=== PATIENT | male | born 1975 | race Caucasian/White ===

== ENCOUNTER → 2020-07-12 | Outpatient (CLI) | payer SELFPAY ==
[~2020-07-12] MED LIST: ALDACTONE 100M100 MG PO; FOLIC ACID 11 MG/TA1 PO; K-DUR20 MEQ PO; LASIX 40MG TABL40 MG PO; PROTONIX 40MG T40 MG PO; THIAMINE 1100 MG/TAB PO
[2020-07-12 17:14] LABS: INR 1.5 (0.8-3.0); PROTHROMBIN TIME 16.8 SECONDS (9.7-12.8)
[2020-07-12 17:15] LABS: BASO # 0.1 (0.0-0.2); EOS # 0.1 (0.0-0.7); EOS % 2.2 % (0-4.0); GRAN # 2.8 (1.4-6.5); GRAN % 47.7 % (42.2-75.2); HEMOGLOBIN 12.7 g/dl (13.5-18.0); LYMPH # 2.1 (1.2-3.4); LYMPH % 36.3 % (20.0-51.0); MEAN CELL VOLUME 98 fl (80.0-100.0); MEAN CORPUSCULAR HEMOGLOBIN 34 pg (27.0-31.0); MEAN CORPUSCULAR HGB CONC 35 g/dl (33.0-37.0); MEAN PLATELET VOLUME 10.4 fl (7.4-10.4); MONO # 0.7 (0.1-0.6); MONO % 12.5 % (1.7-9.3); PLATELET COUNT 97 K/mm3 (130-400); RED BLOOD COUNT 3.71 M/mm3 (4.20-5.60); REDCELL DISTRIBUTION WIDTH-CV 13.1 % (11.5-14.5)
[2020-07-12 17:16] LABS: ALBUMIN 3.1 gm/dL (3.5-5.0); BILIRUBIN,TOTAL 1.5 mg/dL (0.0-1.0); CALCIUM 8.9 mg/dL (8.4-10.2); CREATININE, serum 0.92 (0.66-1.25); POTASSIUM 3.3 mmol/L (3.4-5.0)
[2020-07-12 17:17] LABS: HEMATOCRIT 36.4 % (42.0-52.0)
== END ==
LOC: COL.LAB 15:42
PROVIDERS: Internal Medicine Gastroenterology
DX: K70.31 Alcoholic cirrhosis of liver with ascites (principal); E83.00 Disorder of copper metabolism, unspecified

== ENCOUNTER 2020-10-01 13:38 | Outpatient (CLI) | payer SELFPAY ==
[~2020-10-01] VITALS: Ht 180.3 cm; Wt 96.9 kg
[2020-10-01 14:11] VITALS: BP 113/79; PULSE 76
[2020-10-01 16:52] VITALS: BP 104/66; PULSE 62
[2020-10-01 17:17] LABS: PERITONEAL -POLYMORPHONUCLEAR 6.3 % (0-25); PERITONEAL FLUID RBC 0 /mm3 (0-0)
[2020-10-01 18:28] VITALS: BP 113/61; PULSE 67; TEMP 98.2
[2020-12-29] MEDS ORDERED: DULCOLAX TAB5 MG PO (12:42)
== END 2020-10-01 19:44 | disposition home or self-care (01) ==
LOC: COL.RAD 13:38 → EUO 13:38 → COL.RAD 14:15
PROVIDERS: Internal Medicine Gastroenterology
DX: K70.31 Alcoholic cirrhosis of liver with ascites (principal)
CPT/HCPCS: P9047

== ENCOUNTER 2020-12-04 11:59 | Outpatient (CLI) | payer MEDICAID ==
[~2020-12-04] VITALS: Ht 180.3 cm; Wt 93.2 kg
[2020-12-04] MEDS ORDERED: LASIX 40MG TABL40 MG PO (12:14)
[2020-12-04] MEDS ORDERED: B COMPLEX #11 TA1 PO (12:15)
[2020-12-04] MEDS ORDERED: ALDACTONE 100M100 MG PO (12:15)
[2020-12-04 12:17] VITALS: BP 117/85; PULSE 72
[2020-12-04 15:00] VITALS: BP 110/78; PULSE 58; TEMP 98
[2020-12-04 15:06] LABS: PERITONEAL -POLYMORPHONUCLEAR 8.5 % (0-25); PERITONEAL FLUID RBC 0 /mm3 (0-0)
[2020-12-29] MEDS ORDERED: DULCOLAX TAB5 MG PO (12:42)
== END 2020-12-04 17:35 | disposition home or self-care (01) ==
LOC: COL.RAD 11:59
PROVIDERS: Internal Medicine Gastroenterology
DX: K70.31 Alcoholic cirrhosis of liver with ascites (principal)
CPT/HCPCS: P9047

== ENCOUNTER 2020-12-08 10:30 | Emergency (ER) | payer MEDICAID ==
[~2020-12-08] VITALS: Ht 180.3 cm; Wt 84.1 kg
[~2020-12-08 10:30] MED LIST changes: +B COMPLEX #11 TA1 PO
[2020-12-08 10:32] VITALS: TEMP 97.8
[2020-12-08 10:51] LABS: BASO # 0.1 (0.0-0.2); BASO % 0.5 % (0.0-2.0); EOS # 0.2 (0.0-0.7); EOS % 1.3 % (0-4.0); GRAN # 8.4 (1.4-6.5); GRAN % 72.7 % (42.2-75.2); HEMATOCRIT 30.9 % (42.0-52.0); HEMOGLOBIN 10.8 g/dl (13.5-18.0); LYMPH # 1.8 (1.2-3.4); LYMPH % 15.5 % (20.0-51.0); MEAN CELL VOLUME 94 fl (80.0-100.0); MEAN CORPUSCULAR HEMOGLOBIN 33 pg (27.0-31.0); MEAN CORPUSCULAR HGB CONC 35 g/dl (33.0-37.0); MEAN PLATELET VOLUME 9.1 fl (7.4-10.4); MONO # 1.1 (0.1-0.6); MONO % 9.6 % (1.7-9.3); PLATELET COUNT 183 K/mm3 (130-400); RED BLOOD COUNT 3.28 M/mm3 (4.20-5.60); REDCELL DISTRIBUTION WIDTH-CV 16.1 % (11.5-14.5)
[2020-12-08 11:04] LABS: ALBUMIN 3.1 gm/dL (3.5-5.0); BILIRUBIN,TOTAL 1.2 mg/dL (0.0-1.0); CALCIUM 8.5 mg/dL (8.4-10.2); CREATININE, serum 1.62 (0.66-1.25); TOTAL PROTEIN 7.4 gm/dL (6.4-8.2)
[2020-12-08 11:08] LABS: POTASSIUM 2.9 mmol/L (3.4-5.0)
[2020-12-08 11:19] LABS: INR 1.3 (0.8-3.0)
[2020-12-08 12:13] LABS: COLLECTION METHOD CLEAN CATCH
[2020-12-08 12:36] LABS: PH 6 (5-8); SQUAMOUS EPITHELIAL None Seen /hpf; URINE APPEARANCE Hazy; URINE BACTERIA None Seen /hpf; URINE BILIRUBIN Negative (NEGATIVE); URINE BLOOD 3+ (NEGATIVE); URINE COLOR Yellow; URINE GLUCOSE Negative (NEGATIVE); URINE KETONE Negative (NEGATIVE); URINE LEUKOCYTE ESTERASE Negative (NEGATIVE); URINE NITRATE Negative (NEGATIVE); URINE PROTEIN(semi-quant) 1+ (NEGATIVE); URINE RBC >50 /hpf
[2020-12-08 13:56] VITALS: BP 101/63; PULSE 73
[2020-12-29] MEDS ORDERED: DULCOLAX TAB5 MG PO (12:42)
== END 2020-12-08 13:26 | disposition short-term general hospital (02) ==
LOC: COL.ER 10:30
PROVIDERS: Emergency Medicine
DX: R18.8 Other ascites (principal); E87.8 Other disorders of electrolyte and fluid balance, not elsewhere classified; S31.109A Unspecified open wound of abdominal wall, unspecified quadrant without penetration into peritoneal cavity, initial encounter; F17.210 Nicotine dependence, cigarettes, uncomplicated; K72.90 Hepatic failure, unspecified without coma; X58.XXXA Exposure to other specified factors, initial encounter
CPT/HCPCS: J0692; J3010

== ENCOUNTER 2020-12-30 09:28 | Outpatient (CLI) | payer SELFPAY ==
[~2020-12-30] VITALS: Ht 180.3 cm; Wt 86.5 kg
[~2020-12-30 09:28] MED LIST changes: +DULCOLAX TAB5 MG PO
[2020-12-30 09:45] VITALS: BP 108/76; PULSE 66
[2020-12-30 11:02] LABS: PERITONEAL FLUID RBC 0 /mm3 (0-0)
[2020-12-30 12:06] VITALS: BP 95/61; PULSE 63
--- NOTE | 2020-12-30 15:54 | NUR ---
INT DC'd with catheter intact. Pt assisted out to 's car by wheelchair.
== END 2020-12-30 18:13 | disposition home or self-care (01) ==
LOC: COL.RAD 09:28
PROVIDERS: Internal Medicine Gastroenterology
DX: K70.31 Alcoholic cirrhosis of liver with ascites (principal)
CPT/HCPCS: P9047

== ENCOUNTER 2021-02-22 11:21 | Outpatient (CLI) | payer MEDICAID ==
[~2021-02-22] VITALS: Ht 180.3 cm; Wt 83.5 kg
[2021-02-22] MEDS ORDERED: POTASSIUM (11:45)
[2021-02-22 11:48] VITALS: BP 108/75; PULSE 77; TEMP 98.7
[2021-02-22 14:11] LABS: PERITONEAL -POLYMORPHONUCLEAR 9.4 % (0-25); PERITONEAL FLUID RBC 1000 /mm3 (0-0)
[2021-02-22 15:46] VITALS: BP 101/65; PULSE 59
--- NOTE | 2021-02-22 17:45 | NUR ---
Pt tolerated his albumin infusion with no problem, feeling better at time of departure. pt has been ambulatory to several times, and is amb to exit with a nurse at time of his departure. IV was dc;d with cath intact, dressing was applied. bandaid present to puncture site left abd, no redness or drainage noted. mild nontender swelling to abd in this area, pt encouraged to call Dr. Naqvi for any concerns, especially signs of infection or pain.
== END 2021-02-22 20:11 | disposition home or self-care (01) ==
LOC: COL.RAD 11:21
PROVIDERS: Internal Medicine Gastroenterology
DX: K70.31 Alcoholic cirrhosis of liver with ascites (principal)
CPT/HCPCS: P9047

== ENCOUNTER 2021-03-26 11:59 | Outpatient (CLI) | payer MEDICAID ==
[~2021-03-26] VITALS: Ht 180.3 cm; Wt 86.6 kg
--- NOTE | 2021-03-26 08:55 | NUR ---
PT STATES HE ALWAYS HAS ALBUMIN AFTER THE PROCEDURE. CALLED TO ASK FOR ORDER FOR THE ALBUMIN. LEFT MSG ON HER MACHINE ASKING FOR CLARIFICATION AND ORDER TO BE FAXED TO [phone]
[~2021-03-26 11:59] MED LIST changes: +POTASSIUM
[2021-03-26] MEDS ORDERED: VITAMIN B12 781 TAB PO (12:08)
[2021-03-26] MEDS ORDERED: LASIX 40MG TABL40 MG PO (12:09)
[2021-03-26] MEDS ORDERED: ALDACTONE 100M100 MG PO (12:10)
[2021-03-26] MEDS ORDERED: NATURAL POTASS595 MG PO (12:10)
[2021-03-26 12:11] VITALS: BP 114/75; PULSE 86; TEMP 98.5
[2021-03-26 14:32] VITALS: BP 103/73; PULSE 59
[2021-03-26 14:52] LABS: PERITONEAL -POLYMORPHONUCLEAR 4.5 % (0-25); PERITONEAL FLUID RBC 1000 /mm3 (0-0)
--- NOTE | 2021-03-26 17:06 | NUR ---
INT DC'd with catheter intact. Pt assisted out to entrance by wheelchair.
== END 2021-03-26 17:07 | disposition home or self-care (01) ==
LOC: COL.RAD 11:59
PROVIDERS: Internal Medicine Gastroenterology
DX: K70.31 Alcoholic cirrhosis of liver with ascites (principal)
CPT/HCPCS: P9047

== ENCOUNTER 2021-03-30 11:36 | Day surgery (SDC) | payer MEDICAID ==
[~2021-03-30] VITALS: Ht 180.3 cm; Wt 77.3 kg
[~2021-03-30 11:36] MED LIST changes: +NATURAL POTASS595 MG PO; +VITAMIN B12 781 TAB PO
[2021-03-30 12:17] LABS: BASO # 0.1 (0.0-0.2); BASO % 0.7 % (0.0-2.0); EOS # 0.3 (0.0-0.7); EOS % 3.6 % (0-4.0); GRAN # 5.3 (1.4-6.5); GRAN % 64.3 % (42.2-75.2); HEMOGLOBIN 12.3 g/dl (13.5-18.0); LYMPH # 1.7 (1.2-3.4); LYMPH % 21.1 % (20.0-51.0); MEAN CELL VOLUME 95 fl (80.0-100.0); MEAN CORPUSCULAR HEMOGLOBIN 33 pg (27.0-31.0); MEAN CORPUSCULAR HGB CONC 35 g/dl (33.0-37.0); MEAN PLATELET VOLUME 8.9 fl (7.4-10.4); MONO # 0.8 (0.1-0.6); MONO % 10.1 % (1.7-9.3); PLATELET COUNT 173 K/mm3 (130-400); RED BLOOD COUNT 3.73 M/mm3 (4.20-5.60); REDCELL DISTRIBUTION WIDTH-CV 14.6 % (11.5-14.5)
[2021-03-30 12:28] LABS: INR 1.2 (0.8-3.0); PROTHROMBIN TIME 13.6 SECONDS (9.7-12.8)
[2021-03-30 12:32] LABS: ALBUMIN 3.8 gm/dL (3.5-5.0); BILIRUBIN,TOTAL 1.1 mg/dL (0.0-1.0); CREATININE, serum 1.55 (0.66-1.25); POTASSIUM 3.4 mmol/L (3.4-5.0); TOTAL PROTEIN 7.8 gm/dL (6.4-8.2)
[2021-03-30 12:33] LABS: HEMATOCRIT 35.5 % (42.0-52.0)
[2021-03-30 13:36] VITALS: BP 99/70; PULSE 68; TEMP 97.4
[2021-03-30 15:21] VITALS: BP 111/77; PULSE 75
[2021-03-30] MEDS ORDERED: ROXICODONE 55 MG/TAB PO (15:21)
--- NOTE | 2021-03-30 15:21 | NUR ---
Patient returns to room 7 per cart accompanied by Carolyn TANNER and Riley BENTON. Arouses to verbal stimuli and complains of being thirsty. Exofin skin glue on the left inguinal area dry and wound edges well approixmated. IV fluids infusing. Siderails up x2 and call light in reach. Tem 97.4 and room air sats 97%. Given ice chips of wet mouth. Call light in reach and siderails up x2.
[2021-03-30 15:36] VITALS: BP 92/67; PULSE 81
--- NOTE | 2021-03-30 15:36 | NUR ---
Resting and drinking water. Denies need for pain medications.
[2021-03-30 15:51] VITALS: BP 102/71; PULSE 61
--- NOTE | 2021-03-30 15:51 | NUR ---
Eating applesauce. Denies pain or nausea.
[2021-03-30 16:01] VITALS: BP 103/69; PULSE 62
--- NOTE | 2021-03-30 16:01 | NUR ---
IV discontinued and assisted to edge of the cart. Assisted with dressing and gait is steady and tolerates activity well. Ride notified of patient being ready for discharge at 1630.
--- NOTE | 2021-03-30 16:25 | NUR ---
Dismissal instructions given and patient voices understanding of these. 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
--- NOTE | 2021-03-30 16:27 | NUR ---
Patient dismissed to home driven by friend. Taken to the front door per wheelchair and assisted into vehicle with instructions in hand.
== END 2021-03-30 16:27 | disposition home or self-care (01) ==
LOC: SDCO 11:36
PROVIDERS: Surgery
DX: K40.90 Unilateral inguinal hernia, without obstruction or gangrene, not specified as recurrent (principal); K74.60 Unspecified cirrhosis of liver; R18.8 Other ascites; I10 Essential (primary) hypertension; E11.9 Type 2 diabetes mellitus without complications; F10.11 Alcohol abuse, in remission; F17.210 Nicotine dependence, cigarettes, uncomplicated; Z20.822 Contact with and (suspected) exposure to COVID-19; Z79.899 Other long term (current) drug therapy
CPT/HCPCS: C1781; J0690; J1885; J2250; J2704; J3010; J7030

== ENCOUNTER 2021-04-16 13:18 | Outpatient (CLI) | payer MEDICAID ==
[~2021-04-16] VITALS: Ht 180.3 cm; Wt 88.2 kg
[~2021-04-16 13:18] MED LIST changes: +ROXICODONE 55 MG/TAB PO
[2021-04-16 13:40] VITALS: BP 107/75; PULSE 69; TEMP 98.3
== END 2021-04-16 18:08 | disposition home or self-care (01) ==
LOC: COL.RAD 13:18
DX: K70.31 Alcoholic cirrhosis of liver with ascites (principal)
CPT/HCPCS: P9047

== ENCOUNTER 2021-05-25 12:12 | Outpatient (CLI) | payer MEDICAID ==
--- NOTE | 2021-05-20 09:46 | NUR ---
LMOM AT [phone] WITH DIRECTION TO CALL US BACK AT [phone].
[~2021-05-25] VITALS: Ht 180.3 cm; Wt 88.3 kg
[2021-05-25 12:31] VITALS: BP 124/87; PULSE 90; TEMP 98
[2021-05-25 15:03] LABS: PERITONEAL -POLYMORPHONUCLEAR 9.1 % (0-25)
[2021-05-25 15:52] VITALS: BP 86/59; PULSE 75
[2021-05-25 17:26] VITALS: BP 99/71
== END 2021-05-25 17:44 ==
LOC: COL.RAD 12:12
PROVIDERS: Internal Medicine Gastroenterology
DX: K70.31 Alcoholic cirrhosis of liver with ascites (principal); K72.90 Hepatic failure, unspecified without coma
CPT/HCPCS: P9047

== ENCOUNTER 2021-06-15 13:11 | Outpatient (CLI) | payer MEDICAID ==
[~2021-06-15] VITALS: Ht 180.3 cm; Wt 87.5 kg
[2021-06-15 14:19] VITALS: BP 115/76; PULSE 61; TEMP 97.9
[2021-06-15 15:16] LABS: PERITONEAL -POLYMORPHONUCLEAR 5.9 % (0-25)
[2021-06-15 16:08] VITALS: BP 103/69; PULSE 53
--- NOTE | 2021-06-15 17:25 | NUR ---
INT DC'd with catheter intact. Pt assisted out to hospital entrance by wheelchair.
== END 2021-06-15 17:28 | disposition home or self-care (01) ==
LOC: COL.RAD 13:11
PROVIDERS: Internal Medicine Gastroenterology
DX: K70.31 Alcoholic cirrhosis of liver with ascites (principal)
CPT/HCPCS: P9047

== ENCOUNTER 2021-07-06 12:13 | Outpatient (CLI) | payer MEDICAID ==
[~2021-07-06] VITALS: Ht 180.3 cm; Wt 83.8 kg
[2021-07-06] MEDS ORDERED: ERGOCALCIFER50000 IU PO (12:29)
[2021-07-06] MEDS ORDERED: VITAMIN A10k PO (12:29)
[2021-07-06 12:32] VITALS: BP 100/62; PULSE 71; TEMP 98.5
[2021-07-06 14:24] LABS: PERITONEAL -POLYMORPHONUCLEAR 5.6 % (0-25)
--- NOTE | 2021-07-06 14:43 | NUR ---
Per pharmacy,Melina pt does not need albumin post para this time.INT removed,catheter tip intact.
[2021-07-06 14:46] VITALS: BP 203/84; PULSE 74
--- NOTE | 2021-07-06 15:05 | NUR ---
Pt escorted out via wheelchair by this nurse.
== END 2021-07-06 15:17 ==
LOC: COL.RAD 12:13
PROVIDERS: Internal Medicine
DX: K70.31 Alcoholic cirrhosis of liver with ascites (principal); K76.0 Fatty (change of) liver, not elsewhere classified

== ENCOUNTER 2021-08-05 13:01 | Outpatient (CLI) | payer MEDICAID ==
[~2021-08-05] VITALS: Ht 180.3 cm; Wt 79.2 kg
[2021-08-05 15:00] LABS: PERITONEAL -POLYMORPHONUCLEAR 4.8 % (0-25)
[2021-08-05 15:11] VITALS: BP 168/78; PULSE 92; TEMP 98.2
== END 2021-08-05 16:30 | disposition home or self-care (01) ==
LOC: COL.RAD 13:01 → EUO 13:01 → COL.RAD 16:30
DX: K70.31 Alcoholic cirrhosis of liver with ascites (principal)
CPT/HCPCS: P9047

== ENCOUNTER → 2021-08-05 | Outpatient (CLI) | payer MEDICAID ==
[~2021-08-05] VITALS: Ht 180.3 cm; Wt 89.5 kg
[~2021-08-05] MED LIST changes: +ERGOCALCIFER50000 IU PO; +VITAMIN A10k PO
[2021-08-05 13:18] VITALS: BP 121/81; PULSE 67; TEMP 97.4
== END ==
LOC: COL.RAD 12:00
DX: K70.31 Alcoholic cirrhosis of liver with ascites (principal)
CPT/HCPCS: 19804

== ENCOUNTER 2021-09-29 08:38 | Outpatient (CLI) | payer MEDICAID ==
[~2021-09-29] VITALS: Ht 180.3 cm; Wt 89.6 kg
[2021-09-29 08:57] VITALS: BP 112/78; PULSE 72; TEMP 98.1
[2021-09-29 11:15] VITALS: BP 97/60; PULSE 51
[2021-09-29 11:27] LABS: PERITONEAL -POLYMORPHONUCLEAR 6.4 % (0-25)
[2021-09-29 13:45] VITALS: PULSE 60
== END 2021-09-29 17:50 ==
LOC: COL.RAD 08:38
PROVIDERS: Internal Medicine
DX: K70.31 Alcoholic cirrhosis of liver with ascites (principal)
CPT/HCPCS: P9047

== ENCOUNTER → 2021-10-13 | Outpatient (CLI) | payer MEDICAID | LOC: COL.VAS 14:30 | DX: K70.31 Alcoholic cirrhosis of liver with ascites (principal) ==

== ENCOUNTER 2021-11-01 12:59 | Outpatient (CLI) | payer MEDICAID ==
[~2021-11-01] VITALS: Ht 180.3 cm; Wt 88.3 kg
[2021-11-01 13:15] VITALS: BP 99/64; PULSE 65; TEMP 97.7
[2021-11-01 14:40] VITALS: BP 93/61; PULSE 58
--- NOTE | 2021-11-01 14:41 | NUR ---
PT FROM ULTRASOUND TO ROOM 14. VSS. IV ATTEMPTED X2. LILLIANA KATZ RN NOTIFIED AND WILL COME PLACE IV.
[2021-11-01 15:21] VITALS: BP 99/56; PULSE 55; TEMP 98
--- NOTE | 2021-11-01 17:22 | NUR ---
IV AND MONITOR DC'D. PT WHEELED OUT FOR DISCHARGE.
== END 2021-11-01 18:00 ==
LOC: COL.RAD 12:59
PROVIDERS: Internal Medicine
DX: K70.31 Alcoholic cirrhosis of liver with ascites (principal)
CPT/HCPCS: P9047

== ENCOUNTER 2021-11-23 15:40 | Emergency (ER) | payer MEDICAID ==
[~2021-11-23] VITALS: Ht 180.3 cm; Wt 90.9 kg
[2021-11-23 16:13] VITALS: BP 133/86; PULSE 61; TEMP 98.1
== END 2021-11-23 18:12 | disposition home or self-care (01) ==
LOC: COL.ER 15:40
DX: C30.0 Malignant neoplasm of nasal cavity (principal)

== ENCOUNTER 2021-12-27 07:22 | Outpatient (CLI) | payer MEDICAID ==
--- NOTE | 2021-12-22 12:18 | NUR ---
lmom with instructions and call back number
[~2021-12-27] VITALS: Ht 180.3 cm; Wt 88.9 kg
[2021-12-27] MEDS ORDERED: MULTI VITAMINS1 TAB PO (07:47)
[2021-12-27 07:59] VITALS: BP 125/78; PULSE 70; TEMP 97.8
[2021-12-27 08:04] LABS: HEMATOCRIT 38.2 % (42.0-52.0); HEMOGLOBIN 13.2 g/dl (13.5-18.0); MEAN CELL VOLUME 95 fl (80.0-100.0); MEAN CORPUSCULAR HEMOGLOBIN 33 pg (27-31); MEAN CORPUSCULAR HGB CONC 35 g/dl (33.0-37.0); MEAN PLATELET VOLUME 9.1 fl (7.4-10.4); PLATELET COUNT 165 K/mm3 (130-400); RED BLOOD COUNT 4.01 M/mm3 (4.20-5.60); REDCELL DISTRIBUTION WIDTH-CV 14.3 % (11.5-14.5)
[2021-12-27 08:31] LABS: ALBUMIN 3.3 gm/dL (3.5-5.0); BILIRUBIN,TOTAL 0.9 mg/dL (0.2-1.2); CREATININE, serum 1.75 mg/dL (0.72-1.25); POTASSIUM 3.5 mmol/L (3.5-4.5)
[2021-12-27 08:39] LABS: INR 1.2 (0.8-3.0); PROTHROMBIN TIME 14.1 SECONDS (9.7-12.8)
[2021-12-27 10:05] VITALS: BP 98/61; PULSE 55
== END 2021-12-27 13:41 ==
LOC: COL.RAD 07:22
PROVIDERS: Internal Medicine Gastroenterology
DX: K70.31 Alcoholic cirrhosis of liver with ascites (principal)
CPT/HCPCS: P9047

== ENCOUNTER 2021-12-29 06:15 | Day surgery (SDC) | payer MEDICAID ==
[~2021-12-29] VITALS: Ht 180.3 cm; Wt 78.2 kg
[2021-12-29] VITALS (8 sets, daily range): BP systolic 96–110; BP diastolic 61–74; PULSE 56–71; TEMP 97.9
[~2021-12-29 06:15] MED LIST changes: +MULTI VITAMINS1 TAB PO
[2021-12-29 06:53] LABS: BASO % 0.4 % (0.0-2.0); EOS # 0.3 K/mm3 (0.0-0.7); EOS % 3.4 % (0.0-4.0); GRAN # 4.6 K/mm3 (1.4-6.5); GRAN % 62.7 % (42.2-75.2); HEMATOCRIT 37.7 % (42.0-52.0); HEMOGLOBIN 13.1 g/dl (13.5-18.0); LYMPH # 1.7 K/mm3 (1.2-3.4); LYMPH % 23.8 % (20.0-51.0); MEAN CELL VOLUME 95 fl (80.0-100.0); MEAN CORPUSCULAR HEMOGLOBIN 33 pg (27-31); MEAN CORPUSCULAR HGB CONC 35 g/dl (33.0-37.0); MEAN PLATELET VOLUME 8.7 fl (7.4-10.4); MONO # 0.7 K/mm3 (0.1-0.6); MONO % 9.6 % (1.7-9.3); PLATELET COUNT 140 K/mm3 (130-400); RED BLOOD COUNT 3.97 M/mm3 (4.20-5.60); REDCELL DISTRIBUTION WIDTH-CV 13.9 % (11.5-14.5)
[2021-12-29 07:01] LABS: INR 1.3 (0.8-3.0); PROTHROMBIN TIME 15.2 SECONDS (9.7-12.8)
[2021-12-29] MEDS ORDERED: MELATONIN5 M1 PO (07:05)
[2021-12-29 07:14] LABS: ALBUMIN 3.7 gm/dL (3.5-5.0); BILIRUBIN,TOTAL 1.2 mg/dL (0.2-1.2); CALCIUM 9.2 mg/dL (8.4-10.2); CREATININE, serum 1.44 mg/dL (0.72-1.25); POTASSIUM 3.4 mmol/L (3.5-4.5); TOTAL PROTEIN 7.4 gm/dL (6.2-8.1)
[2021-12-29] MEDS ORDERED: ROXICODONE 55 MG/TAB PO (09:12)
--- NOTE | 2021-12-29 09:55 | NUR ---
Patient returns to room 7 per cart from PACU and arouses to verbl stimuli. Right groin incision covered with exofin skin glue and wound edges well approximated. IV fluids infusing at TKO and site is free of redness or swelling. Siderails up x2 and call light in reach. Allowed to rest. Patient is sipping on water and denies pain or nausea at this time.
--- NOTE | 2021-12-29 10:10 | NUR ---
Resting when not disturbed.
--- NOTE | 2021-12-29 10:25 | NUR ---
Patient continues to rest without complaints of pain or nausea. Continues to rest.
--- NOTE | 2021-12-29 10:40 | NUR ---
Resting without complaints of discomfort and not disturbed.
--- NOTE | 2021-12-29 10:55 | NUR ---
Patient continues to rest without complaints of pain or nausea and allowed to rest.
--- NOTE | 2021-12-29 11:25 | NUR ---
Continues to rest without complaints of pain or nausea. Arouses to verbal stimuli. States that he just wants to rest.
--- NOTE | 2021-12-29 11:43 | NUR ---
Dr. Santacruz here and talks with the patient re: surgery. All Questions answered.
--- NOTE | 2021-12-29 11:55 | NUR ---
Assisted up to the edge of the cart. IV was converted to INT. Uses urinal. Voids 150ml's urine.
--- NOTE | 2021-12-29 12:30 | NUR ---
Tolerated eating toast and drinking juice. Denies pain or nausea.
--- NOTE | 2021-12-29 12:45 | NUR ---
INT discontinued and site is free of redness. Patient is able to dress self.
--- NOTE | 2021-12-29 13:05 | NUR ---
Dismissal instructions given and voices understanding of home cares and follow up appointment as scheduled. 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
--- NOTE | 2021-12-29 13:12 | NUR ---
Patient dismissed to home driven by friend and taken to private vehicle per wheelchair and assisted into car with dismissal instructions in hand.
== END 2021-12-29 13:12 | disposition home or self-care (01) ==
LOC: SDCO 06:15
PROVIDERS: Surgery
DX: K40.90 Unilateral inguinal hernia, without obstruction or gangrene, not specified as recurrent (principal); K70.31 Alcoholic cirrhosis of liver with ascites; F17.210 Nicotine dependence, cigarettes, uncomplicated
CPT/HCPCS: C1781; J0690; J1170; J1885; J2704; J3010; J7030

== ENCOUNTER 2022-01-31 13:30 | Outpatient (CLI) | payer MEDICAID ==
[~2022-01-31] VITALS: Ht 180.3 cm; Wt 83.9 kg
[~2022-01-31 13:30] MED LIST changes: +MELATONIN5 M1 PO
[2022-01-31 13:41] VITALS: BP 129/82; PULSE 85; TEMP 97.9
[2022-01-31 16:32] VITALS: BP 112/75; PULSE 58
[2022-02-01 08:23] LABS: PERITONEAL -POLYMORPHONUCLEAR 7.5 % (0-25)
== END 2022-01-31 19:15 | disposition home or self-care (01) ==
LOC: COL.RAD 13:30
PROVIDERS: Internal Medicine Gastroenterology
DX: K70.31 Alcoholic cirrhosis of liver with ascites (principal)
CPT/HCPCS: P9047

== ENCOUNTER 2022-02-21 11:42 | Outpatient (CLI) | payer MEDICAID ==
[~2022-02-21] VITALS: Ht 180.3 cm; Wt 81.6 kg
[2022-02-21 12:06] VITALS: BP 100/65; PULSE 56; TEMP 97.8
[2022-02-21 12:19] LABS: HEMATOCRIT 38.3 % (42.0-52.0); HEMOGLOBIN 13.2 g/dl (13.5-18.0); MEAN CELL VOLUME 97 fl (80.0-100.0); MEAN CORPUSCULAR HEMOGLOBIN 34 pg (27-31); MEAN CORPUSCULAR HGB CONC 35 g/dl (33.0-37.0); MEAN PLATELET VOLUME 8.9 fl (7.4-10.4); PLATELET COUNT 143 K/mm3 (130-400); RED BLOOD COUNT 3.94 M/mm3 (4.20-5.60); REDCELL DISTRIBUTION WIDTH-CV 14.3 % (11.5-14.5)
[2022-02-21 12:21] LABS: INR 1.1 (0.8-3.0); PROTHROMBIN TIME 12.6 SECONDS (9.7-12.8)
[2022-02-21 12:29] LABS: ALBUMIN 3.2 gm/dL (3.5-5.0); BILIRUBIN,TOTAL 0.7 mg/dL (0.2-1.2); CALCIUM 8.7 mg/dL (8.4-10.2); CREATININE, serum 1.97 mg/dL (0.72-1.25); POTASSIUM 4.1 mmol/L (3.5-4.5); TOTAL PROTEIN 6.9 gm/dL (6.2-8.1)
--- NOTE | 2022-02-21 12:49 | NUR ---
CO2 LEVEL CALLED TO DR DURANT.
[2022-02-21 14:15] VITALS: BP 97/70; PULSE 50; TEMP 98.2
[2022-02-21 14:45] VITALS: BP 106/74; PULSE 53
[2022-02-21 14:57] LABS: PERITONEAL -POLYMORPHONUCLEAR 5.2 % (0-25)
[2022-02-21 15:15] VITALS: BP 101/65; PULSE 51
[2022-02-21 16:10] VITALS: BP 95/67; PULSE 53
== END 2022-02-21 16:15 | disposition home or self-care (01) ==
LOC: COL.RAD 11:42
PROVIDERS: Internal Medicine Gastroenterology
DX: K70.31 Alcoholic cirrhosis of liver with ascites (principal)
CPT/HCPCS: P9047

== ENCOUNTER 2022-03-28 12:38 | Outpatient (CLI) | payer MEDICAID ==
[~2022-03-28] VITALS: Ht 180.3 cm; Wt 86.1 kg
[2022-03-28 13:57] VITALS: BP 95/68; PULSE 46; TEMP 97.8
[2022-03-28 15:50] LABS: PERITONEAL -POLYMORPHONUCLEAR 3.8 % (0-25)
[2022-03-28 16:31] VITALS: BP 89/57; PULSE 48
== END 2022-04-05 17:30 | disposition home or self-care (01) ==
LOC: COL.RAD 12:38
PROVIDERS: Internal Medicine Gastroenterology
DX: K70.31 Alcoholic cirrhosis of liver with ascites (principal)
CPT/HCPCS: P9047

== ENCOUNTER 2022-05-05 09:01 | Outpatient (CLI) | payer MEDICAID ==
[~2022-05-05] VITALS: Ht 180.3 cm; Wt 86.8 kg
[2022-05-05 09:23] VITALS: BP 118/77; PULSE 60; TEMP 97.7
[2022-05-05 11:37] VITALS: BP 101/71; PULSE 62
[2022-05-05 11:45] LABS: PERITONEAL -POLYMORPHONUCLEAR 4.9 % (0-25)
== END 2022-05-05 15:28 ==
LOC: COL.RAD 09:01
PROVIDERS: Internal Medicine Gastroenterology
DX: K70.31 Alcoholic cirrhosis of liver with ascites (principal)
CPT/HCPCS: P9047

== ENCOUNTER 2022-07-12 07:23 | Outpatient (CLI) | payer MEDICAID ==
[~2022-07-12] VITALS: Ht 180.3 cm; Wt 89.5 kg
[~2022-07-12 07:23] MED LIST changes: +LYRICA 25MG CAP25 MG PO; +REQUIP 0.5MG0.5 MG PO
[2022-07-12 07:48] VITALS: BP 138/96; PULSE 78; TEMP 97.6
[2022-07-12 07:58] LABS: INR 1.2 (0.8-3.0); PROTHROMBIN TIME 13.8 SECONDS (9.7-12.8)
[2022-07-12 08:09] LABS: ALBUMIN 2.8 gm/dL (3.5-5.0); BILIRUBIN,TOTAL 0.9 mg/dL (0.2-1.2); CALCIUM 8.7 mg/dL (8.4-10.2); CREATININE, serum 1.75 mg/dL (0.72-1.25); POTASSIUM 3.7 mmol/L (3.5-4.5)
[2022-07-12 10:52] LABS: PERITONEAL -POLYMORPHONUCLEAR 5.5 % (0-25)
[2022-07-12 11:10] VITALS: BP 101/60; PULSE 68; TEMP 97.6
[2022-08-30] MEDS ORDERED: CEPHALEXIN500 M1 PO (10:53)
== END 2022-07-12 14:52 ==
LOC: COL.RAD 07:23
PROVIDERS: Internal Medicine Gastroenterology
DX: K70.31 Alcoholic cirrhosis of liver with ascites (principal)
CPT/HCPCS: P9047

== ENCOUNTER 2022-08-09 09:45 | Outpatient (CLI) | payer MEDICAID ==
[~2022-08-09] VITALS: Ht 180.3 cm; Wt 88.4 kg
[2022-08-09 10:03] VITALS: BP 111/73; PULSE 62; TEMP 98
[2022-08-09 10:46] LABS: INR 1.2 (0.8-3.0); PROTHROMBIN TIME 13.4 SECONDS (9.7-12.8)
[2022-08-09 10:47] LABS: ALBUMIN 2.9 gm/dL (3.5-5.0); BILIRUBIN,TOTAL 0.9 mg/dL (0.2-1.2); CALCIUM 8.5 mg/dL (8.4-10.2); CREATININE, serum 1.45 mg/dL (0.72-1.25); POTASSIUM 3.2 mmol/L (3.5-4.5); TOTAL PROTEIN 6.7 gm/dL (6.2-8.1)
[2022-08-09 11:44] VITALS: BP 108/72; PULSE 63
[2022-08-09 12:38] LABS: PERITONEAL -POLYMORPHONUCLEAR 6.6 % (0-25)
--- NOTE | 2022-08-09 14:41 | NUR ---
PT INFUSION FINISHED. PT STATES HE HAS A RIDE COMING ADN WANTS TO WAIT DOWN STAIRS FOR RIDE. IV REMOVED. RESP EVEN AND UNLABORED.
== END 2022-08-09 14:41 | disposition home or self-care (01) ==
LOC: COL.RAD 09:45
PROVIDERS: Internal Medicine Gastroenterology
DX: K70.31 Alcoholic cirrhosis of liver with ascites (principal)
CPT/HCPCS: P9047

== ENCOUNTER 2022-08-23 09:59 | Outpatient (CLI) | payer MEDICAID ==
[~2022-08-23] VITALS: Ht 180.3 cm; Wt 88.1 kg
[2022-08-23 10:18] VITALS: BP 122/69; PULSE 83; TEMP 97.9
[2022-08-23 10:47] LABS: INR 1.2 (0.8-3.0); PROTHROMBIN TIME 13.2 SECONDS (9.7-12.8)
[2022-08-23 10:57] LABS: ALBUMIN 2.9 gm/dL (3.5-5.0); BILIRUBIN,TOTAL 0.5 mg/dL (0.2-1.2); CALCIUM 8.7 mg/dL (8.4-10.2); CREATININE, serum 1.66 mg/dL (0.72-1.25); POTASSIUM 4.1 mmol/L (3.5-4.5); TOTAL PROTEIN 6.7 gm/dL (6.2-8.1)
[2022-08-23 11:55] LABS: PERITONEAL -POLYMORPHONUCLEAR 3.7 % (0-25)
[2022-08-23 12:11] VITALS: BP 115/76; PULSE 67
--- NOTE | 2022-08-23 15:40 | NUR ---
Pt has tolerated his albumin infusions with no problem. Jim was able to get some sleep, and was able to eat a nice meal. He chooses to walk to exit at time of his departure. He is ambulatory to ER exit with steady gait, where he was going to wait for his ride.
== END 2022-08-23 16:37 | disposition home or self-care (01) ==
LOC: COL.RAD 09:59
PROVIDERS: Internal Medicine Gastroenterology
DX: K70.31 Alcoholic cirrhosis of liver with ascites (principal)
CPT/HCPCS: P9047

== ENCOUNTER 2022-09-06 09:47 | Outpatient (CLI) | payer MEDICAID ==
[~2022-09-06] VITALS: Ht 180.3 cm; Wt 84.6 kg
[~2022-09-06 09:47] MED LIST changes: +CEPHALEXIN500 M1 PO
[2022-09-06 10:09] VITALS: BP 119/75; PULSE 83; TEMP 97.8
[2022-09-06 11:56] VITALS: BP 115/77; PULSE 85; TEMP 97.8
[2022-09-06 12:45] LABS: PERITONEAL -POLYMORPHONUCLEAR 13.3 % (0-25)
== END 2022-09-06 15:30 | disposition home or self-care (01) ==
LOC: COL.RAD 09:47
PROVIDERS: Internal Medicine Gastroenterology
DX: K70.31 Alcoholic cirrhosis of liver with ascites (principal)
CPT/HCPCS: P9047

== ENCOUNTER 2022-09-20 09:15 | Outpatient (CLI) | payer MEDICAID ==
[~2022-09-20] VITALS: Ht 180.3 cm; Wt 89.6 kg
[2022-09-20 09:31] VITALS: BP 111/73; PULSE 69; TEMP 97.2
[2022-09-20 09:50] LABS: INR 1.2 (0.8-3.0); PROTHROMBIN TIME 13.3 SECONDS (9.7-12.8)
[2022-09-20 10:03] LABS: CALCIUM 8.6 mg/dL (8.4-10.2); CREATININE, serum 1.78 mg/dL (0.72-1.25); POTASSIUM 3.6 mmol/L (3.5-4.5); TOTAL PROTEIN 6.5 gm/dL (6.2-8.1)
[2022-09-20 11:10] LABS: PERITONEAL -POLYMORPHONUCLEAR 5.8 % (0-25)
[2022-09-20 11:14] VITALS: BP 109/70; PULSE 60; TEMP 98
== END 2022-09-20 13:54 | disposition home or self-care (01) ==
LOC: COL.RAD 09:15
PROVIDERS: Internal Medicine Gastroenterology
DX: K70.31 Alcoholic cirrhosis of liver with ascites (principal)
CPT/HCPCS: P9047